=== PATIENT | male | born 1965 | race Caucasian/White ===

== ENCOUNTER 2017-12-03 20:01 | Emergency (ER) | payer BC ==
[~2017-12-03] VITALS: Ht 182.9 cm; Wt 102.1 kg
[~2017-12-03 20:01] MED LIST: GLUCOSAMINE1000 MG; HYDROCODON-ACE1 EAC7 PO; HYDROXYZINE HCL25 M2 PO; MEDROLDOSEPACK PO; NORFLEX100 MG PO; PREDNISONE 10 M10 M1 PO; TRIAMCINOLONE A80 G2 TOP
[2017-12-03] MEDS ORDERED: IBUPROFEN 600600 M1 PO (21:01)
[2017-12-03] MEDS ORDERED: KEFLEX500 M1 PO (21:01)
[2017-12-03 21:05] VITALS: BP 144/80
== END 2017-12-03 21:06 | disposition home or self-care (01) ==
LOC: M.ERS 20:01
DX: S90.31XA Contusion of right foot, initial encounter (principal); S90.811A Abrasion, right foot, initial encounter; F10.20 Alcohol dependence, uncomplicated; W20.8XXA Other cause of strike by thrown, projected or falling object, initial encounter; Y93.89 Activity, other specified; Y92.89 Other specified places as the place of occurrence of the external cause; Y99.8 Other external cause status

== ENCOUNTER 2019-01-11 19:23 | Emergency (ER) | payer BC ==
[~2019-01-11] VITALS: Ht 182.9 cm; Wt 102.1 kg
[~2019-01-11 19:23] MED LIST changes: +IBUPROFEN 600600 M1 PO; +KEFLEX500 M1 PO
[2019-01-11] MEDS ORDERED: ACYCLOVIR 800800 MG PO (19:43)
[2019-01-11] MEDS ORDERED: NORCO 5-325 TA1 EACH PO (19:43)
[2019-01-11 19:51] VITALS: BP 132/83
== END 2019-01-11 19:51 | disposition home or self-care (01) ==
LOC: M.ERS 19:23
DX: B02.9 Zoster without complications (principal)

== ENCOUNTER 2020-07-16 17:26 | Emergency (ER) | payer BC ==
[~2020-07-16] VITALS: Ht 182.9 cm; Wt 104.3 kg
[~2020-07-16 17:26] MED LIST changes: +ACYCLOVIR 800800 MG PO; +NORCO 5-325 TA1 EACH PO
[2020-07-16] MEDS ORDERED: MEDROLDOSEPACK PO (18:22)
[2020-07-16 19:08] VITALS: BP 135/90
== END 2020-07-16 19:08 | disposition home or self-care (01) ==
LOC: M.ERS 17:26
DX: L25.9 Unspecified contact dermatitis, unspecified cause (principal)